=== PATIENT | male | born 1940 | race Caucasian/White ===

== ENCOUNTER → 2021-03-28 | Outpatient (CLI) | payer MEDICARE, OTHER ==
[~2021-03-28] MED LIST: CPR500T PO; FEXO180T84 PO; IBUP-30 PO; METR500T PO; OMEG1CAP51 PO; OMEP20CA12 PO; PSYL1PAC15 PO; RNT150T PO; SIMV20TA3 PO
--- NOTE | 2021-03-28 10:03 | Diagnostic Imaging Report ---
PROCEDURE: CT urinary tract, rule out kidney stone. TECHNIQUE: Multiple contiguous axial images were obtained through the abdomen and pelvis without the use of intravenous contrast. Auto Exposure Controls were utilized during the CT exam to meet ALARA standards for radiation dose reduction. INDICATION: Back pain. Correlation is made with prior CT 11/11/2016. Lung bases are clear. There is fluid-filled distention to the stomach. There appear to be some inflammatory changes adjacent to the 2nd portion of the duodenum and small associated wall thickening. Remainder of the small bowel loops appear normal caliber. There is no small bowel distention. There is a knuckle of small bowel that extends into the umbilicus but no definite obstruction is seen. There is moderate stool throughout the colon suggestive of constipation. Prostate is enlarged. Bladder is decompressed. There is some free fluid in the pelvis as well as trace free fluid in the upper abdomen. Liver and is unremarkable. There is some mild distention of the gallbladder. The pancreas and spleen are unremarkable. No adrenal mass detected. There is 3 to 4 mm nonobstructing calculus in the right kidney. There is no hydronephrosis. Bony structures are nonacute. IMPRESSION: There appears to be inflammatory stranding and wall thickening associated with the proximal duodenum. There is some fluid-filled distention to the stomach which could be owing to some mild gastric outlet obstruction. Remainder of the small bowel is unremarkable. Large volume stool throughout the colon consistent with constipation. Mild gallbladder hydrops. Small amount of free fluid in the abdomen and pelvis, nonspecific. Prostatomegaly. Dictated by: Dictated on workstation # [id number]
[2021-03-28 10:06] LABS: HEMATOCRIT 33 % (40-54); HEMOGLOBIN 11.1 g/dL (13.3-17.7); MEAN CORPUSCULAR HEMOGLOBIN 32 pg (25-34); MEAN CORPUSCULAR HGB CONC 33 g/dL (32-36); MEAN CORPUSCULAR VOLUME 96 fL (80-99); PLATELET COUNT 273 10^3/uL (130-400); WHITE BLOOD COUNT 5.4 10^3/uL (4.3-11.0)
[2021-03-28 10:07] LABS: BASOPHILS % (AUTO) 0 % (0-10); EOSINOPHILS % (AUTO) 1 % (0-10); LYMPHOCYTES # (AUTO) 0.9 X 10^3 (1.0-4.0); LYMPHOCYTES % (AUTO) 18 % (12-44); MONOCYTES # (AUTO) 0.6 X 10^3 (0.0-1.0); MONOCYTES % (AUTO) 11 % (0-12); NEUTROPHILS # (AUTO) 3.8 X 10^3 (1.8-7.8); NEUTROPHILS % (AUTO) 70 % (42-75)
[2021-03-28 10:47] LABS: ALBUMIN 3.5 GM/DL (3.2-4.5); BILIRUBIN,TOTAL 0.5 MG/DL (0.1-1.0); CALCIUM 9.6 MG/DL (8.5-10.1); CREATININE SERUM 0.6 MG/DL (0.60-1.30); POTASSIUM 3.4 MMOL/L (3.6-5.0); TOTAL PROTEIN 7.5 GM/DL (6.4-8.2)
== END ==
LOC: RAD FS 09:15
PROVIDERS: ATTEND Family Medicine
DX: N40.1 Benign prostatic hyperplasia with lower urinary tract symptoms (principal); R10.9 Unspecified abdominal pain; R18.8 Other ascites
CPT/HCPCS: 36415; 74176; 80053; 85025